=== PATIENT | female | born 1940 | race Caucasian/White ===

== ENCOUNTER 2025-03-12 21:15 | Emergency (ER) | payer SELFPAY ==
[2025-03-12 21:28] VITALS: BP 119/45
[2025-03-12 22:27] LABS: Hematocrit 32.9 % (37.0-47.0); Hemoglobin 11.3 g/dL (12.0-16.0); Mean Corp Hgb Conc. 34.3 g/dL (33.0-37.0); Mean Corpuscular Volume 93.2 fL (81.0-99.0); Nucleated Red Blood Cells % 0 %; Platelet Count 134 10^3/uL (130-400); Red Cell Dist. Width 12.1 % (11.5-14.5)
[2025-03-12 22:40] LABS: ALT (SGPT) 22 U/L (0-35); AST (SGOT) 36 U/L (14-36); Albumin 3.8 g/dl (3.5-5.0); Alkaline Phosphatase 121 U/L (38-126); Blood Urea Nitrogen 53 mg/dl (7-17); Calcium 9.3 mg/dl (8.4-10.2); Carbon Dioxide 26 mmol/L (22-30); Chloride 104 mmol/L (98-107); Glucose 102 mg/dl (70-99); Potassium 4.5 mmol/L (3.5-5.1); Sodium 137 mmol/L (135-145); Total Protein 7.6 g/dl (6.3-8.2); eGFR 37.56
[2025-03-12 22:51] LABS: Troponin I 0.016 ng/ml
[2025-03-13 01:54] VITALS: BMI 40.5
[2025-03-13 01:57] VITALS: BP 115/44
[2025-03-13 02:00] VITALS: BP 107/48
--- NOTE | 2025-03-13 02:02 | EDRN ---
Friday night, pt developed charley horse type pain in her R leg that was constant. Friday pain was intermittent. Prior to arrival in ED, pt had pain while she was in the car but has not had it since she came into the ED. Pt says pain was
'excruciating, I could hardly walk.' No known injury. Pt adds she noted redness in her R groin the other night. No fever/chills, cp, sob, abd pain, n/v. Pt has chronic cough.
--- NOTE | 2025-03-13 02:05 | ED.GENMED ---
History of Present Illness
General
Chief Complaint: Extremity Pain (non-traumatic)
Time Seen by Provider: 03/13/25 02:05
History of Present Illness
History of Present Illness:
FOCUSED PAST MEDICAL HISTORY
- A-fib, sarcoidosis, CHF, lymphedema
REVIEW OF OLD RECORDS
- No old records available for review in [facility]
Note:
CHIEF COMPLAINT(S)
Pain in the right thigh.
HISTORY OF PRESENT ILLNESS
The patient is an 84-year-old female with a medical history significant for congestive heart failure and chronic lymphedema, presenting with a complaint of pain in the right thigh. The symptoms began Friday night and were described as a 'Clay
horse' type of cramping pain which eased up but was excruciating at times. The pain subsided Friday evening and recurred briefly when getting out of the car before arriving here. The patient denies any breathing difficulties or fluid accumulation
in the chest currently but acknowledges chronic issues with fluid retention related to her congestive heart failure. The patient is on spironolactone and reports normal potassium levels. A thorough review of systems noted no alarming changes, and
the physical examination did not indicate acute bruising or swelling in the thigh. The patient is on apixaban (Eliquis) and reports adherence without missed doses.
PAST MEDICAL AND SURGICAL HISTORY
- History of congestive heart failure
- Chronic lymphedema
CHRONIC MEDICAL CONDITIONS SIGNIFICANTLY AFFECTING CARE
Chronic conditions affecting care: Congestive heart failure, chronic lymphedema.
SOCIAL DETERMINANTS OF HEALTH
The patient has a nurse who visits three times a week, providing ongoing support for her medical conditions.
PHYSICAL EXAM
- General: Appears somewhat weak and debilitated
- HEENT: Moist oral mucosa
- Cardiovascular: No chest wall tenderness
- Pulmonary: No respiratory distress, breath sounds are for the most part clear other than some very faint rales occasionally
- Abdomen: Soft with no peritoneal signs, no tenderness
- Neurologic: Fair strength all extremities, no coordination deficits
- Psychiatric: Appropriate mental status, normal insight and judgement
- Extremities: Nontender, EPIC and bilateral lower extremity edema, moves all extremities equally
PLAN
Continue current management with spironolactone and apixaban. Discharge home with instructions to follow up with primary care for ongoing management of congestive heart failure and associated symptoms.
DIFFERENTIAL DIAGNOSIS
The Differential Diagnosis includes, in no particular order and is not limited to:
- Muscle cramp due to electrolyte imbalance
- Deep vein thrombosis
- Recurrent muscle spasm
- Exacerbation of heart failure
- Lymphedema-associated complications
- Rhabdomyolysis
- Muscle strain
- Neuropathic pain
- Arterial insufficiency
- Cellulitis
SUMMARY OF ENCOUNTER
The patient presented with right thigh pain resembling muscle spasms occurring intermittently over the past two days. Clinical examination, along with external records and lab results, did not suggest acute intervention necessities or complications
such as thromboembolism, considering the patients use of anticoagulants. Lung clarity and maintenance of stable oxygen saturation suggested controlled heart failure.
DISPOSITION
Discharge
ASSESSMENT
Muscle spasm potentially exacerbated by diuretic use, without acute need for interventions beyond current management.
MEDICATION RECONCILIATION
- Spironolactone
- Apixaban (Eliquis)
MEDICAL DECISION MAKING
-Complexity of Data Reviewed: Chronic conditions affecting care: Congestive heart failure, chronic lymphedema. The Differential Diagnosis includes, in no particular order: Muscle cramp due to electrolyte imbalance, Deep vein thrombosis, Recurrent
muscle spasm, Exacerbation of heart failure, Lymphedema-associated complications, Rhabdomyolysis, Muscle strain, Neuropathic pain, Arterial insufficiency, Cellulitis.
-Data:
Category 1
Laboratory work and vital assessments reviewed but not indicating acute intervention or risks of worsening conditions.
Category 2
Clinical information discussed with the patients regular visiting nurse.
-Risk:
Prescription medication management was confirmed. Discharge deemed appropriate as there is no significant risk of acute complications or the need for hospital admission.
DIAGNOSIS
Muscle spasm, R25.2
Congestive heart failure, I50.9
Chronic lymphedema, I89.0
RADIOLOGY
- Chest x-ray shows some mild pulmonary vascular congestion along with linear density at the right base
EKG
- Sinus 70, normal axis, PVC, poor R wave progression
LABS
- White count normal, hemoglobin 11.3, creatinine 1.4 with no old to compare, troponin 0.016, BNP 342
UPDATE
-SUMMARY OF ENCOUNTER
The patient, an 84-year-old female, presented with complaints of right thigh pain resembling muscle spasms occurring intermittently over the past two days. She experienced spontaneous resolution of symptoms without significant current symptoms.
Given the patients compliance with her medication (apixaban) and normal potassium levels, the likelihood of deep vein thrombosis (DVT) was deemed low. The patients medical history of congestive heart failure and chronic lymphedema were considered
during assessment. No acute interventions were deemed necessary based on the evaluation.
DISPOSITION
Discharge
ASSESSMENT
Muscle spasm potentially exacerbated by diuretic use, without acute need for interventions beyond current management.
PLAN
Continue current management with spironolactone and apixaban. Discharge home with instructions to follow up with primary care for ongoing management of congestive heart failure and associated symptoms.
MEDICATION RECONCILIATION
- Spironolactone
- Apixaban
MEDICAL DECISION MAKING
Chronic conditions affecting care include congestive heart failure, chronic lymphedema. The differential diagnosis includes: Muscle cramp due to electrolyte imbalance, deep vein thrombosis, recurrent muscle spasm, exacerbation of heart failure,
lymphedema-associated complications, rhabdomyolysis, muscle strain, neuropathic pain, arterial insufficiency, and cellulitis.
-Data:
Category 1
Laboratory work and vital assessments reviewed but do not indicate acute intervention or risks of worsening conditions. The patient mentions past notice of renal insufficiency, though this was not acutely significant today.
Risk:
Prescription medication management was confirmed. Consideration of admission/observation was given the complexity and risk of the patients presenting complaint, but the patient is safe for outpatient management with close follow-up.
DIAGNOSIS
Muscle spasm, R25.2
Congestive heart failure, I50.9
Chronic lymphedema, I89.0
Phy Exam
Physical Exam
Physical Exam:
See HPI
Course
Orders/Labs/Results
Orders:
Orders
03/12/25 21:39
Electrocardiogram (*1) Urgent
Reason for Study: Other
Other Reason for Exam: Respiratory Distress
EKG- Treatment ONCE
O2 Therapy [RESP] Urgent
Titrate/Wean O2 to maintain O2 sat greater than (%): 93
Special Instructions: TO MAINTAIN CONTINUOUS O2 SATS >/= 93%
Pulse Ox/cont/shift [RESP] Urgent
Quantity: 1
Special Instructions: continuous pulse ox
03/12/25 22:20
Complete Blood Count/With Diff Urgent
Comprehensive Metabolic Panel Urgent
NT-proBNP Urgent
Troponin I Urgent
03/13/25 00:00
CR Chest - 2 Views Urgent
Reason For Exam: respiratory distress
Abnormal Lab Results
03/12/25
22:20
RBC 3.53 L 10^6/uL
(4.20-5.40)
Hgb 11.3 L g/dL
(12.0-16.0)
Hct 32.9 L %
(37.0-47.0)
MCH 32.0 H pg
(27.0-31.0)
MPV 10.5 H fL
(7.4-10.4)
Absolute Monos (auto) 1.0 H 10^3/uL
(0.1-0.6)
Monocytes % 15.7 H %
(1.7-9.3)
BUN 53 H mg/dl
(7-17)
Creatinine 1.4 H mg/dL
(0.6-1.0)
Glucose 102 H mg/dl
(70-99)
03/12/25 22:20
03/12/25 22:20
Vital Signs
Initial and Last Documented VS:
Initial Vital Signs
Temp Pulse Resp BP Pulse Ox
37.0 C 70 20 119/45 98
03/12/25 21:28 03/12/25 21:28 03/12/25 21:28 03/12/25 21:28 03/12/25 21:28
Last Documented Vital Signs
Temp Pulse Resp BP Pulse Ox
36.6 C 61 14 107/48 98
03/13/25 01:57 03/13/25 02:00 03/13/25 01:57 03/13/25 02:00 03/13/25 02:00
*Pulse Oximetry
SaO2: 98
Oxygen Mode of Delivery: Room air
Patient hypoxic: no
*Critical Care Note
Total Time (30-74mins, 75-104mins- exclusive of procedures): Not Applicable
ED Attending Note
-
Portions of this chart may have been created with voice recognition software.� Occasional wrong word or��sound alike� substitutions may have occurred due to the inherent limitations of voice recognition software.
Discharge Plan
Departure
Prescriptions:
No Action
furosemide [Lasix] 40 mg Tablet
80 mg PO DAILY
furosemide [Lasix] 40 mg Tablet
40 mg PO NOON
metolazone 5 mg Tablet
5 mg PO TUFR
spironolactone 25 mg Tablet
25 mg PO DAILY
Eliquis 5 mg Tablet
5 mg PO BID
PreserVision AREDS-2 250-90-40-1 mg Capsule
1 tab PO BID
dapagliflozin propanediol [Farxiga] 5 mg Tablet
5 mg PO DAILY
Interventions
Interventions:
*Risk Screen - Suicide Last Done: 03/12/25 21:28
*General Assessment Last Done: 03/12/25 21:28
*Neglect/Abuse Screening Last Done: 03/12/25 21:28
*ED- Fall Risk Assessment Last Done: 03/12/25 21:28
*ED COVID-19 Vaccine History Last Done: 03/12/25 21:28
Discharge Date and Time
Print Language: BRAZILIAN
== END 2025-03-13 02:30 | disposition home or self-care (01) ==
LOC: EMR 21:15
PROVIDERS: EMERGENCY PHYSICIAN Emergency Medicine
DX: M79.651 Pain in right thigh (principal); I48.91 Unspecified atrial fibrillation; I50.9 Heart failure, unspecified; D86.9 Sarcoidosis, unspecified; I89.0 Lymphedema, not elsewhere classified; Z79.01 Long term (current) use of anticoagulants
CPT/HCPCS: 99284; 71046; 80053; 83880; 84484; 85025; 93005